=== PATIENT | female | born 1985 | race Caucasian/White ===

== ENCOUNTER 2016-11-27 11:16 | Inpatient (IN) | payer OTHER ==
[~2016-11-27] VITALS: Ht 152.4 cm; Wt 131.5 kg
[~2016-11-27 11:16] MED LIST: ANUSOL HC,ANUCO25 MG PR; DOCUSATE SODIU100 MG PO; MIRALAX17 GM PO; NOHOMEMEDS; TYLENOL EXTRA500 MG PO
[2016-11-27 12:21] VITALS: BP 107/54
[2016-11-27 19:51] VITALS: BP 106/62
[2016-11-27 23:23] VITALS: BP 97/51
[2016-11-28 03:54] VITALS: BP 97/50
[2016-11-28 07:40] VITALS: BP 115/70
[2016-11-28 15:40] VITALS: BP 141/62
[2016-11-28 19:41] VITALS: BP 116/57
[2016-11-29 00:26] VITALS: BP 111/54
[2016-11-29 03:51] VITALS: BP 92/53
[2016-11-29 07:23] VITALS: BP 114/56
[2016-11-29] MEDS ORDERED: ASPIRIN EC325 MG PO (09:29)
[2016-11-29] MEDS ORDERED: ENDOCET 5-3251 EACH PO (09:30)
[2016-11-29] MEDS ORDERED: OXAYDO5 MG PO (09:33)
[2016-11-29 12:33] VITALS: BP 108/67
== END 2016-11-29 16:00 | disposition home health service (06) | DRG 516 ==
LOC: 3EAST 11:16 → 2SOUTH 11:16 → 3EAST 19:46
PROC: 0QSF04Z Reposition Left Patella with Internal Fixation Device, Open Approach (ICD-10-PCS; principal; 2016-11-27)
DX: M25.562 Pain in left knee (principal); E66.01 Morbid (severe) obesity due to excess calories; Z68.43 Body mass index [BMI] 50.0-59.9, adult; Z88.5 Allergy status to narcotic agent
CPT/HCPCS: 87641; 94799; 97530 GO; C1713; J0131; J0690; J1100; J1170; J1885; J2250; J2405; J2765; J2795; J3010; J7120